=== PATIENT | male | born 1970 | race Caucasian/White ===

== ENCOUNTER 2025-01-21 08:00 | Outpatient (RCR) | payer OTHER, SELFPAY ==
[2025-01-21 10:39] VITALS: BP 128/70; PULSE 60; TEMP 36.9; BMI 32.7
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
--- NOTE | 2025-01-21 11:47 | PC.NURSE ---
Patient reports they have a new PCP appointment in May 2025.
--- NOTE | 2025-01-21 14:07 | HO.PHP ---
Clients case was opened and reviewed in teams today.
--- NOTE | 2025-01-25 23:21 | PM.EVENT ---
Event Note Date of Service: 01/25/25 Event Note: Patient was scheduled to be seen for psychiatric evaluation on Monday 01/22 and today Thursday 01/25 however patient called out from program both days. He is scheduled to come in tomorrow. Time Spent With Patient Time: Total time managing care of this patient today ____ minutes.
--- NOTE | 2025-01-26 09:30 | HO.PHP ---
PHP clinician, Gina reached out to Akshat due to him not showing to program. Akshat disclosed that he forgot to inform the team that he was unable to attend because he has something going on today. Akshat voiced that he may be in tomorrow but he is not sure. Akshat noted that he has a lot of things going on during the day right now, so he isn't sure if he could finish the program. Was wondering if he needs to discharge from the program and return. There were no safety concerns reported. Gina informed Akshat that a clinician will be reaching out to him to complete the discharge over the phone.
--- NOTE | 2025-01-26 14:34 | HO.PHP ---
PHP staff member reached out to Akshat throughout the day, in which a VM was left but he never returned her call. PHP staff attempted to call again prior to leaving and he still did not answer.
== END 2025-01-21 23:59 | disposition home or self-care (01) ==
LOC: HO.PHPA 08:00
PROVIDERS: Visit Provider Psychiatry & Neurology Psychiatry
DX: F33.2 Major depressive disorder, recurrent severe without psychotic features (principal); F12.90 Cannabis use, unspecified, uncomplicated; F41.1 Generalized anxiety disorder
CPT/HCPCS: 90791; 90853